=== PATIENT | female | born 1990 | race Asian ===

== ENCOUNTER 2018-11-24 22:42 | Emergency (ER) | payer OTHER ==
[~2018-11-24] VITALS: Ht 170.2 cm; Wt 52.2 kg
[2018-11-24] MEDS ORDERED: ADDERAL20 MG ORAL (22:54)
[2018-11-25] VITALS: BP 117/77
[2018-11-25] LABS: APPEARANCE,URINE CLEAR; BILIRUBIN, URINE NEGATIVE (NEGATIVE); COLOR,URINE PALE YELLOW; GLUCOSE, URINE (UA) NEGATIVE (NEGATIVE); KETONES,URINE NEGATIVE (NEGATIVE); LEUKOCYTE ESTERASE ,URINE NEGATIVE (NEGATIVE); NITRITE,URINE NEGATIVE (NEGATIVE); PH,URINE 7 (4.5-8.0); PROTEIN,URINE NEGATIVE (NEGATIVE); UROBILINOGEN,URINE NORMAL MG/DL (0.0-1.0)
[2018-11-25] MEDS ORDERED: ZOFRAN4 MG ORAL (00:01)
[2018-11-25 00:20] VITALS: BP 126/84
[2018-11-25 00:30] VITALS: BP 126/84
--- NOTE | 2018-11-25 00:30 | NUR ---
ED Nurse Note: recieved pt from home with c/o shaking and increased anxiety after taking med for first time this am, pt deneis pain, cp, sob, or labored breathing, is ambulatory, c/o nausea and being anxious, pt also with urinary frequency, pt seen by md, all test negative, med effective for nausea, pt being d/c to home with f/u info and after care instructions, nad noted during d/c to home.
--- NOTE | 2018-11-25 00:31 | Emergency Room Report ---
History of Present Illness General Chief Complaint: Vomiting Source: Patient Present Illness HPI Patient is a 27-year-old female presented after increased nausea. Patient had recently taken spironolactone for the first time. She had taken 2 doses. Patient did initiate this medications after sap abap developer had prescribed this for her acne. She denies any fever or hematemesis. She reports having no abdominal pain or diarrhea. She states that she is not . She denies any fever. She reports having a feeling of slight lightheadedness associate with nausea. She had been able to tolerate oral fluids observantly. She states that she has had prior history of ADHD and had been taking Adderall. Allergies: Coded Allergies: No Known Allergies (Unverified , 11/24/18) Patient History Past Medical History: see triage record Last Menstrual Period: 11/05/18 Now: No : 0 Para: 0 Reviewed Nursing Documentation: PMH: Agreed; PSxH: Agreed Nursing Documentation-PMH Past Medical History: No History, Except For Hx Asthma: Yes Review of Systems All Other Systems: negative except mentioned in HPI Physical Exam Vital Signs Date Time Temp Pulse Resp B/P (MAP) Pulse Ox O2 Delivery O2 Flow Rate FiO2 11/24/18 22:42 97.9 86 18 133/88 (103) 99 Room Air General Appearance: well appearing, no apparent distress, alert, GCS 15 Head: normocephalic, atraumatic ENT: hearing grossly normal, normal voice Neck: full range of motion, supple Respiratory: no respiratory distress, speaking full sentences Cardiovascular #1: normal inspection, normal peripheral pulses, regular rate, rhythm, no edema Gastrointestinal: normal inspection Musculoskeletal: normal inspection, normal range of motion Neurologic: normal inspection, alert, oriented x3, responsive, normal gait Psychiatric: mood/affect normal Skin: no rash Medical Decision Making Diagnostic Impression: Primary Impression: Nausea ER Course .Patient presented for nausea. Differential diagnosis include was not limited to medication reaction, allergic reaction, dehydration, electrolyte abnormality among others. Patient has a benign exam and does not appear to require any further imaging or laboratory testing at this time. Patient is noted to have recent diuretic use. She had only taken 2 doses so is unlikely that she would have significant electrolyte abnormalities due to this. Patient had not been vomiting. She was noted to be urinating several times while in the emergency department. Patient was given Zofran for some nausea. Orthostatic vital signs were unremarkable. EKG interpreted by me showed normal sinus rhythm without acute ST or T wave changes. Patient appears to be stable for discharge. She did not appear to require any current treatment other than discontinuation of spironolactone. Patient was advised to recheck with her sap abap developer. She was also advised to return if she felt worse. Labs Test 11/24/18 22:30 Urine Color Pale yellow Urine Appearance Clear Urine pH 7 (4.5-8.0) Urine Specific [place] 1.010 (1.005-1.035) Urine Protein Negative (NEGATIVE) Urine Glucose (UA) Negative (NEGATIVE) Urine Ketones Negative (NEGATIVE) Urine Blood Negative (NEGATIVE) Urine Nitrite Negative (NEGATIVE) Urine Bilirubin Negative (NEGATIVE) Urine Urobilinogen Normal MG/DL (0.0-1.0) Urine Leukocyte Esterase Negative (NEGATIVE) Urine HCG, Qualitative Negative (NEGATIVE) Last Vital Signs Date Time Temp Pulse Resp B/P (MAP) Pulse Ox O2 Delivery O2 Flow Rate FiO2 11/25/18 00:00 74 16 117/77 98 Room Air 11/24/18 22:42 97.9 Status: improved Disposition: HOME, SELF-CARE Condition: Stable Scripts Ondansetron (Zofran) 4 Mg Tablet 4 MG ORAL Q6H PRN for Nausea & Vomiting, #30 TAB 0 Refills Prov: Kiel Snell MD 11/25/18 Patient Instructions: Nausea and Vomiting, Adult Kiel Snell MD Nov 25, 2018 00:31
--- NOTE | 2018-11-25 19:22 | Cardiology Report ---
APPROVED REPORT EKG Measurement Heart [id number] Normal sinus rhythm Normal ECG
== END 2018-11-25 00:30 | disposition home or self-care (01) ==
LOC: EMR 23:05
DX: R11.0 Nausea (principal)
CPT/HCPCS: 81003; 81025; 82962; 93005; 99283